=== PATIENT | female | born 1960 | race Caucasian/White ===

== ENCOUNTER → 2021-10-31 10:16 | Outpatient (BNVA) | payer MEDICARE, MEDICAID, SELFPAY | PROVIDERS: Visit Provider Nurse Practitioner Family | DX: S89.92XA Unspecified injury of left lower leg, initial encounter (principal); S83.005A Unspecified dislocation of left patella, initial encounter; X58.XXXA Exposure to other specified factors, initial encounter; Z96.653 Presence of artificial knee joint, bilateral; Z91.81 History of falling | CPT/HCPCS: 73560; 73565; 99203 ==

== ENCOUNTER 2021-12-15 08:07 | Day surgery (SDC) | payer MEDICARE, MEDICAID, SELFPAY ==
[2021-12-15] VITALS (13 sets, daily range): BP systolic 105–141; BP diastolic 71–91; PULSE 62–78; RESP 14–18; TEMP 36.3–36.6; O2SAT 93–97
--- NOTE | 2021-12-15 | SCC_ITS ---
PROCEDURE DONE: Monte and [employer]ph[employer] 6 BioSure PK 9x25mm screw left knee 35.5 seconds of fluoroscopic guidance, for a cumulative dose of 2.8 mGy, was provided to Dr. Echeverria by the radiology department. C-arm images of the LEFT knee were saved for the patient's permanent record. [facility]
--- NOTE | 2021-12-15 | XR_ITS ---
WS: [id number] INTRAOPERATIVE TECHNIQUE: 3 Spot fluoroscopic images for intraoperative purposes. FLUOROSCOPY TIME: 35.5 seconds CLINICAL INFORMATION: tendon repair COMPARISON: None. FINDINGS: Intraoperative changes RIGHT TKA with patellar resurfacing.. XR/XR knee LT 1-2V [id number] IMPRESSION: Images obtained for intraoperative purposes.
[2021-12-15] MEDS: CELEcoxib 200 mg Capsule 400 MG PO (08:54)
[2021-12-15] MEDS: gabapentin 300 mg Capsule PO (08:55)
[2021-12-15] MEDS: acetaminophen 500 mg Tablet 1000 MG PO (08:55)
[2021-12-15] MEDS: sodium chloride 0.9% (100 ml) 100 ML 30 ML (08:57)
--- NOTE | 2021-12-15 09:09 | ANES.PREANE2 ---
Pre-Anesthetic Assessment Height/Weight: Height 1.68 m Weight 73.482 kg Temp Pulse Resp BP Pulse Ox O2 Del Method 97.4 F L 78 16 116/91 97 12/15/21 08:30 12/15/21 08:30 12/15/21 08:30 12/15/21 08:30 12/15/21 08:30 12/15/21 08:30 Preop Diagnosis: Chronic left patellar dislocation Operation Date: 12/15/21 09:25 Proposed Procedures p realignment of her proximal extensor mechanism/ 67331,Z96.652,S83.005A(Left) - Efrain Echeverria MD Familial anesthetic complications: None Was Beta Margarita taken within 24 hours: N/A Was Clonidine taken within 24 hours: N/A Last intake: Intake Last Liquid Date 12/14/21 Last Liquid Time 16:00 Last Solid Date 12/14/21 Last Solid Time 12:00 Social Tobacco (vapes), No alcohol and No tobacco Exam alert, oriented x 3, clear to auscultation bilaterally and regular rate & rhythm Airway Mallampati: Class II Dentition: false Pulmonary Chronic Obstructive Pulmonary Disease CV/HEM Hypertension Metabolic Hyperlipidemia Anesthetic Plan ASA status: 3 Anesthesia: General Risk of > 500 ml blood loss (7ml/kg in children): No Medications/Allergies Home Medications Medication Instructions Recorded Confirmed Last Taken Type aspirin 81 mg tablet,delayed 81 mg PO BID 10/31/21 12/15/21 12/12/21 History release (Adult Low Dose Aspirin) ibuprofen 800 mg tablet 800 mg PO PRN PRN arthritis 10/31/21 12/15/21 1 Week Ago History ~12/08/21 pregabalin 25 mg capsule (Lyrica) 25 mg PO DAILY 10/31/21 12/15/21 12/14/21 History albuterol sulfate 90 mcg/actuation 1 inh inhalation PRN PRN SOB 12/12/21 12/15/21 12/15/21 History aerosol inhaler aripiprazole 5 mg tablet (Abilify) 5 mg PO DAILY 12/12/21 12/15/21 12/14/21 History atorvastatin 20 mg tablet 20 mg PO DAILY 12/12/21 12/15/21 12/14/21 History buprenorphine 8 mg-naloxone 2 mg 1 film sublingual DIRECTED 12/12/21 12/15/21 12/14/21 History sublingual film bupropion HCl 150 mg 24 hr tablet, 150 mg PO DAILY 12/12/21 12/15/21 12/14/21 History extended release (Wellbutrin XL) cariprazine 3 mg capsule (Vraylar) 3 mg PO DAILY 12/12/21 12/15/21 12/14/21 History carisoprodol 350 mg tablet 350 mg PO DAILY 12/12/21 12/15/21 12/14/21 History conjugated estrogens 0.3 mg tablet 0.3 mg PO DAILY 12/12/21 12/15/21 3 Weeks Ago History (Premarin) ~11/24/21 diphenhydramine HCl 25 mg capsule 25 mg PO DAILY 12/12/21 12/15/21 12/14/21 History (Banophen) docusate sodium 100 mg capsule 100 mg PO DAILY 12/12/21 12/15/21 12/14/21 History duloxetine 60 mg capsule,delayed 60 mg PO DAILY 12/12/21 12/15/21 12/14/21 History release estradiol 2 mg tablet 2 mg PO DAILY 12/12/21 12/15/21 12/14/21 History fluticasone fur. 100 mcg-umeclid 100 inh inhalation DAILY 12/12/21 12/15/21 12/14/21 History 62.5 mcg-vilant 25 mcg inhalat.powder (Trelegy Ellipta) gabapentin 800 mg tablet 800 mg PO DAILY 12/12/21 12/15/21 12/14/21 History lorazepam 2 mg tablet (Ativan) 2 mg PO DAILY 12/12/21 12/15/21 12/15/21 History mirtazapine 45 mg tablet 45 mg PO DAILY 12/12/21 12/15/21 12/14/21 History quetiapine 300 mg tablet 300 mg PO DAILY 12/12/21 12/15/21 12/14/21 History tramadol 50 mg tablet 50 mg PO DAILY 12/12/21 12/15/21 12/11/21 History Allergies Allergy/AdvReac Type Severity Reaction Status Date / Time codeine Allergy ALGY-Hives Verified 12/15/21 08:33 sulfamethoxazole Allergy ADR-Vomitin Verified 12/15/21 08:33 [From Bactrim] g trimethoprim [From Bactrim] Allergy ADR-Vomitin Verified 12/15/21 08:33 g Data Anesthesia Cardiac Studies: No Data to Display
--- NOTE | 2021-12-15 09:51 | P.HP_ITS ---
Same Day Surgery H&P Indication for Procedure/HPI DATE OF PROCEDURE: December 15, 2021 CHIEF COMPLAINT/INDICATIONFOR SURGICAL PROCEDURE: Dislocated left patella PREOP DIAGNOSIS: Chronic left patellar dislocation PLANNED PROCEDURE: Operation Date: 12/15/21 09:25 Proposed Procedures p realignment of her proximal extensor mechanism/ 21803,Z96.652,S83.005A(Left) - Efrain Echeverria MD Patient is a new 61 year old female patient who presents today with pain in left knee. Patient states she has had a previous left TKA, unsure of year.? She states it was done by me in [place].? She suggest its been more than 5 years. Patient states she bent down and heard a snap about a year ago.? He noted lateral displacement of the patella which has been a persistent problem ever since.? She describes ongoing pain and weakness.? Patient rates pain 610, takes lyrica and ibuprofen.? She reportedly lives in [place] and sought care of physicians in [facility].? She was seen by 2 physicians and told that there was nothing they could do and it was suggested that he follow back up with the operative surgeon.? She now reports here a year after the injury with continued pain and instability.? He describes 1 fall a week ago on her left knee where she sustained abrasions which have subsequently healed Medications/Allergies* Home Medications Medication Instructions Recorded Confirmed Type aspirin 81 mg tablet,delayed 81 mg PO BID 10/31/21 12/15/21 History release (Adult Low Dose Aspirin) ibuprofen 800 mg tablet 800 mg PO PRN PRN arthritis 10/31/21 12/15/21 History pregabalin 25 mg capsule (Lyrica) 25 mg PO DAILY 10/31/21 12/15/21 History albuterol sulfate 90 mcg/actuation 1 inh inhalation PRN PRN SOB 12/12/21 12/15/21 History aerosol inhaler aripiprazole 5 mg tablet (Abilify) 5 mg PO DAILY 12/12/21 12/15/21 History atorvastatin 20 mg tablet 20 mg PO DAILY 12/12/21 12/15/21 History buprenorphine 8 mg-naloxone 2 mg 1 film sublingual DIRECTED 12/12/21 12/15/21 History sublingual film bupropion HCl 150 mg 24 hr tablet, 150 mg PO DAILY 12/12/21 12/15/21 History extended release (Wellbutrin XL) cariprazine 3 mg capsule (Vraylar) 3 mg PO DAILY 12/12/21 12/15/21 History carisoprodol 350 mg tablet 350 mg PO DAILY 12/12/21 12/15/21 History conjugated estrogens 0.3 mg tablet 0.3 mg PO DAILY 12/12/21 12/15/21 History (Premarin) diphenhydramine HCl 25 mg capsule 25 mg PO DAILY 12/12/21 12/15/21 History (Banophen) docusate sodium 100 mg capsule 100 mg PO DAILY 12/12/21 12/15/21 History duloxetine 60 mg capsule,delayed 60 mg PO DAILY 12/12/21 12/15/21 History release estradiol 2 mg tablet 2 mg PO DAILY 12/12/21 12/15/21 History fluticasone fur. 100 mcg-umeclid 100 inh inhalation DAILY 12/12/21 12/15/21 History 62.5 mcg-vilant 25 mcg inhalat.powder (Trelegy Ellipta) gabapentin 800 mg tablet 800 mg PO DAILY 12/12/21 12/15/21 History lorazepam 2 mg tablet (Ativan) 2 mg PO DAILY 12/12/21 12/15/21 History mirtazapine 45 mg tablet 45 mg PO DAILY 12/12/21 12/15/21 History quetiapine 300 mg tablet 300 mg PO DAILY 12/12/21 12/15/21 History tramadol 50 mg tablet 50 mg PO DAILY 12/12/21 12/15/21 History Allergies/Adverse Reactions Allergy/AdvReac Type Severity Reaction Status Date / Time codeine Allergy ALGY-Hives Verified 12/15/21 08:33 sulfamethoxazole Allergy ADR-Vomitin Verified 12/15/21 08:33 [From Bactrim] g trimethoprim [From Bactrim] Allergy ADR-Vomitin Verified 12/15/21 08:33 g Pertinent Exam Findings alert, oriented x 3 and clear to auscultation bilaterally KNEE [LEFT]? The patient has resting lateral displacement of her patella relative to the femur.? Her quadriceps tendon is palpable and a laterally displaced position as well. Her skin is otherwise healthy. ?RANGE OF MOTION:? EXAMINED LIMB? Extention:?Full extension ? Flexion:?The knee can be flexed approximately 90 degrees before she is limited by pain.? As the knee is flexed past 30 degrees the patella dislocates laterally and it? can not be reduced She has a palpable dorsalis pedis pulse. She can flex and send her toes and ankle without any motor deficits Her sensation is intact to light touch. Recommendations Surgery/Procedure today Coding Level of Care Code Acute [employer] for [employer]bs
[2021-12-15] MEDS: ceFAZolin 2,000 MG in sodium chloride 0.9% (plus) 50 ML 100 MG IV (10:15)
--- NOTE | 2021-12-15 12:15 | PM.OP ---
Operative Report Date of procedure: December 15, 2021 Pre-op diagnosis: Preop Diagnosis Chronic left patellar dislocation Post-op diagnosis: same Implants: [employer]hew BioSure PK 9x25mm screw Monte [employer]hew Q fix [employer] SpeedGraft Allograft Pathology: none sent Anesthesia: General Estimated blood loss (mL): 100 Tourniquet time (min): 64 Condition: stable Disposition: PACU Brief History: The patient is a 61-year-old who sustained a lateral patellofemoral dislocation over a year ago. She was unable to obtain treatment in [place] and presented to our clinic in October with instability in her left knee Procedure: Ms. Mojica was taken to the operating room. She was given 2 g of Ancef and a general anesthesia. She is prepped and draped in the supine position with a tourniquet on the left leg. A timeout was performed. The leg was exsanguinated and a tourniquet inflated to 300 mmHg. The knee was opened up through the anterior incision and a medial and lateral flap fashioned. Dissection was carried up approximately until reasonable quadriceps muscle was encountered. A plane was then developed along the medial retinaculum working distally. No significant muscle was identified from a point 3 cm proximal to the patella working distal but a reasonable medial cuff of tissue was identified. Dissection was then carried down to the medial border of the patella. Tunnel was made from the medial patella up underneath the periosteum of the superior patella through that was past the 9mm allograft. A Monte [employer]hew Q fix anchor was then placed in the middle of the patella and this used to secure the allograft to the medial patella. The graft was then looped around the lateral quadriceps and brought over the patella exiting beneath the medial retinaculum. A guidepin was then driven from the medial epicondyle. The posterior stabilized component did not allow for a anatomic identification of [place], however best approximation was made creating a starting point just proximal to the medial femoral condyle articular surface and just anterior to the posterior cortex. The guidepin was driven up and out the anterior lateral femur. Over the reamer a 7 mm reamer was passed to a depth of approximately 30 cm and the tunnel was completed with the Endobutton reamer. Free sutures from the ends of the allograft were then shuttled through the femur. A 9 mm x 25 mm Biosure PK screw was then passed over the guidepin with a satisfactory purpose. Intraoperative imaging were obtained showing the patella over the trochlea. Medial retinaculum was then brought over the anterior patella and repaired in a pants over vest fashion with 1 Ethibond suture. A lateral release was accomplished lateral to the patella extending up along the atrophic appearing vastus lateralis musculature to facilitate positioning of the patella. Deep tissues were closed with 2-0 Vicryl. The skin was closed with skin payton. The wound was covered with a Prineo dressing and sterile dressings. The patient was placed in a compressive to be gauze and placed in a knee immobilizer. She was extubated taken to recovery room in stable condition.
[2021-12-15] MEDS: oxyCODONE-APAP 5-325 mg Tablet 1 TAB PO (13:56)
--- NOTE | 2021-12-15 14:13 | ANE.PACU2 ---
Inpatient post-anesthesia follow up: Airway intact: Yes Vital signs: Temperature 97.9 F Pulse Rate 76 Respiratory Rate 18 Blood Pressure 133/89 Pulse Oximetry 96 Oxygen Delivery Me thod Room Air Oxygen Flow Rate 6 Fraction of Inspir ed Oxygen Hydration adequate: Yes Nausea and vomiting: No Pain level: 1 Mental status: Baseline
== END 2021-12-15 14:20 | disposition home or self-care (01) ==
PROVIDERS: PCP Family Medicine; Visit Provider Orthopaedic Surgery
PROC: (CPT 27427; principal; 2021-12-15 09:15)
DX: T84.023A Instability of internal left knee prosthesis, initial encounter (principal); J44.9 Chronic obstructive pulmonary disease, unspecified; I10 Essential (primary) hypertension; E78.5 Hyperlipidemia, unspecified; F17.290 Nicotine dependence, other tobacco product, uncomplicated; Z79.82 Long term (current) use of aspirin; Z79.891 Long term (current) use of opiate analgesic; Z88.2 Allergy status to sulfonamides; Z88.5 Allergy status to narcotic agent; Y83.8 Other surgical procedures as the cause of abnormal reaction of the patient, or of later complication, without mention of misadventure at the time of the procedure
CPT/HCPCS: 27422; 73560; 76000; C1713; J1100; J1580; J2405; J2704; J3010; J3490

== ENCOUNTER → 2021-12-30 08:32 | Outpatient (BNVA) | payer MEDICARE, MEDICAID, SELFPAY | PROVIDERS: PCP Family Medicine; Visit Provider Nurse Practitioner Family | DX: Z98.890 Other specified postprocedural states (principal) | CPT/HCPCS: 99024 ==

== ENCOUNTER 2021-12-30 14:06 | Outpatient (CLI) | payer MEDICARE, MEDICAID, SELFPAY | END 2021-12-30 14:07 | disposition home or self-care (01) | LOC: SPT 14:08 | PROVIDERS: PCP Family Medicine; Visit Provider Nurse Practitioner Family | DX: Z47.89 Encounter for other orthopedic aftercare (principal) | CPT/HCPCS: 97760; L1832 ==

== ENCOUNTER → 2022-02-10 13:21 | Outpatient (BNVA) | payer MEDICARE, MEDICAID, SELFPAY | PROVIDERS: PCP Family Medicine; Visit Provider Nurse Practitioner Family | DX: Z98.890 Other specified postprocedural states | CPT/HCPCS: 99024; 99213 ==